=== PATIENT | female | born 1930 | race Caucasian/White ===

== ENCOUNTER 2020-08-26 11:49 | Day surgery (SDC) | payer MEDICARE, BC ==
[~2020-08-26 11:49] MED LIST: Cefuroxime 10 MG/ML SYRINGE EYELF SCH; Lidocaine 1% PF 2 ML SDV INJECT SCH; Pilocarpine 4% Ophth Soln 15 ML Bot EYELF SCH
[2020-08-26] MEDS: Polymyxin B/Trimethoprim 10 ML Bottle EYELF SCH ×3 (12:14→14:04)
[2020-08-26] MEDS: Brimonidine 0.2% Ophth Soln 5 ML Bottle EYELF SCH ×3 (12:19→14:04)
[2020-08-26] MEDS: Phenylephrine 2.5% Ophth Soln 2 ML Bot EYELF SCH ×5 (12:24→13:36)
--- NOTE | 2020-08-26 12:27 | PCM.PREANE ---
Preanesthetic Assessment - Procedure Proposed Procedure: Left Cataract Extraction with IOL - Anesthesia/Transfusion/Family Hx Anesthesia History: Prior Anesthesia Without Reaction Family History of Anesthesia Reaction: No - Review of Systems General: No Symptoms Pulmonary: No Symptoms Cardiovascular: Other (elevated cholesterol and hypertension. ) Gastrointestinal: No Symptoms Neurological: No Symptoms Other: Reports: None (Bilateral Hearing Aides, very [place]. ) - Physical Assessment NPO Status Date: 08/26/20 NPO Status Time: 06:00 Height: 1.63 m Weight: 52.163 kg ASA Class: 2 Mental Status: Alert & Oriented x3 Airway Class: Mallampati = 2 Dentition: Reports: Dentures, Partial Thyro-Mental Finger Breadths: 2 Mouth Opening Finger Breadths: 3 ROM/Head Extension: Full Lungs: Clear to Auscultation, Normal Respiratory Effort Cardiovascular: Regular Rate, Regular Rhythm - Allergies Allergies/Adverse Reactions: Allergies Allergy/AdvReac Type Severity Reaction Status Date / Time alcohol Allergy Swelling Verified 08/25/20 10:11 - Acknowledgements Anesthesia Type Planned: MAC Pt an Appropriate Candidate for the Planned Anesthesia: Yes Alternatives and Risks of Anesthesia Discussed w Pt/Guardian: Yes Pt/Guardian Understands and Agrees with Anesthesia Plan: Yes PreAnesthesia Questionnaire - HOME MEDS Home Medications: Home Meds Aspirin 81 mg PO DAILY 08/25/20 [History] Benazepril/Hydrochlorothiazide [Benazepril-HCTZ 10-12.5 MG] 1 tab PO DAILY 08/25/20 [History] Carboxymethylcellulose Sodium [Artificial Tears] 1 dose EYEBOTH ASDIRECTED PRN 08/25/20 [History] Lutein/Minerals/Vit A,C & E [Ocuvite] 1 tab PO DAILY 08/25/20 [History] - CURRENT (IN HOUSE) MEDS Current Meds: Current Medications Brimonidine Tartrate (Brimonidine 0.2% Ophth Soln 5 Ml Bottle) 0 ml EYELF ASDIRECTED RIGO Stop: 08/26/20 18:00 Last Admin: 08/26/20 12:19 Dose: 1 drop Documented by: Cefuroxime Sodium (Cefuroxime 10 Mg/Ml Syringe) 0 mg EYELF ASDIRECTED RIGO Stop: 08/26/20 18:00 Lidocaine HCl (Lidocaine 1% Pf 2 Ml Sdv) 0 ml INJECT ASDIRECTED RIGO Stop: 08/26/20 18:00 Phenylephrine HCl (Phenylephrine 2.5% Ophth Soln 2 Ml Bot) 0 ml EYELF ASDIRECTED RIGO Stop: 08/26/20 18:00 Last Admin: 08/26/20 12:24 Dose: 1 drop Documented by: Pilocarpine HCl (Pilocarpine 4% Ophth Soln 15 Ml Bot) 0 ml EYELF ASDIRECTED RIGO Stop: 08/26/20 18:00 Polymyxin/Trimethoprim Sulfate (Polymyxin B/Trimethoprim 10 Ml Bottle) 0 ml EYELF ASDIRECTED RIGO Stop: 08/26/20 18:00 Last Admin: 08/26/20 12:14 Dose: 1 drop Documented by: Tetracaine HCl (Tetracaine Hcl/Pf 0.5% 4 Ml Bottle) 0 ml EYEBOTH ASDIRECTED RIGO Stop: 08/26/20 18:00 Tropicamide (Tropicamide 1% Ophth Soln 15 Ml Bottle) 0 ml EYELF ASDIRECTED RIGO Stop: 08/26/20 18:00
[2020-08-26] MEDS: Tropicamide 1% Ophth Soln 15 ML Bottle EYELF SCH ×4 (12:31→13:12)
[2020-08-26] MEDS: Tetracaine HCl/PF 0.5% 4 ML Bottle EYEBOTH SCH ×2 (13:27→13:55)
--- NOTE | 2020-08-26 14:09 | PCM48HPAN ---
Post Anesthesia Note - EVALUATION WITHIN 48HRS OF ANESTHETIC Vital Signs in Normal Range: Yes Patient Participated in Evaluation: Yes Respiratory Function Stable: Yes Airway Patent: Yes Cardiovascular Function Stable: Yes Hydration Status Stable: Yes Pain Control Satisfactory: Yes Nausea and Vomiting Control Satisfactory: Yes Mental Status Recovered: Yes
== END 2020-08-26 14:27 | disposition home or self-care (01) ==
LOC: JD.SDS 11:49
PROVIDERS: ATTEND Ophthalmology
DX: H25.812 Combined forms of age-related cataract, left eye (principal); E78.00 Pure hypercholesterolemia, unspecified; I10 Essential (primary) hypertension; Z98.890 Other specified postprocedural states; Z90.49 Acquired absence of other specified parts of digestive tract; Z91.048 Other nonmedicinal substance allergy status
CPT/HCPCS: 66984; J0697; V2632